=== PATIENT | female | born 1945 | race African-American/Black ===

== ENCOUNTER 2017-12-11 16:53 | Emergency (ER) | payer MEDICARE, OTHER ==
[~2017-12-11] VITALS: Ht 162.6 cm; Wt 64.0 kg
[2017-12-11] MEDS ORDERED: BENA40TA3 PO (17:06)
[2017-12-11] MEDS ORDERED: METO-385 PO (17:06)
[2017-12-11] MEDS ORDERED: TETANUS, DIPHTHERIA, PERTUSSIS VAC/PF 0.5ML (>7YR OLD) IM ONE (17:30)
[2017-12-11] MEDS ORDERED: LIDOCAINE HCL 1% 20ML VIAL (Pyxis) INJ MC ONE (17:30)
[2017-12-11] MEDS ORDERED: BACITRACIN ZINC OINT UDPKT TOP ONE (17:30)
[2017-12-11 19:50] VITALS: BP 155/88
== END 2017-12-11 20:30 | disposition home or self-care (01) ==
LOC: ER 17:41
DX: S81.011A Laceration without foreign body, right knee, initial encounter (principal); I10 Essential (primary) hypertension; W01.0XXA Fall on same level from slipping, tripping and stumbling without subsequent striking against object, initial encounter
CPT/HCPCS: 12015; 73140; 73562; 90471; 90715; 99284; J3490

== ENCOUNTER 2017-12-24 07:45 | Emergency (ER) | payer MEDICARE, OTHER ==
[~2017-12-24] VITALS: Ht 162.6 cm; Wt 64.0 kg
[~2017-12-24 07:45] MED LIST: BENA40TA3 PO; METO-385 PO
[2017-12-24 11:45] VITALS: BP 155/92
== END 2017-12-24 12:09 | disposition home or self-care (01) ==
LOC: ER 07:59
DX: S81.011D Laceration without foreign body, right knee, subsequent encounter (principal); S61.216D Laceration without foreign body of right little finger without damage to nail, subsequent encounter; I10 Essential (primary) hypertension; X58.XXXD Exposure to other specified factors, subsequent encounter
CPT/HCPCS: 99283